=== PATIENT | male | born 1985 | race Caucasian/White ===

== ENCOUNTER 2017-06-21 18:06 | Emergency (ER) | payer MEDICAID, OTHER ==
[~2017-06-21] VITALS: Ht 180.3 cm; Wt 107.8 kg
[2017-06-21 18:08] VITALS: BP 115/66
[2017-06-21] MEDS ORDERED: LIDOCAINE 1%, 20ML SQ ONE (19:00)
[2017-06-21] MEDS ORDERED: KETOROLAC 30 MG/1 ML IM ONE (19:00)
[2017-06-21] MEDS ORDERED: METHOCARBAMOL 750 MG TABLET PO ONE (19:00)
[2017-06-21] MEDS ORDERED: KETOROLAC 30 MG/1 ML ONE (19:06)
[2017-06-21] MEDS ORDERED: LIDOCAINE 1%, 20ML ONE (19:06)
[2017-06-21] MEDS ORDERED: METHOCARBAMOL 750 MG TABLET ONE (19:06)
== END 2017-06-21 19:50 ==
LOC: ED 19:40
DX: S39.012A Strain of muscle, fascia and tendon of lower back, initial encounter (principal); L05.01 Pilonidal cyst with abscess; J44.9 Chronic obstructive pulmonary disease, unspecified; W19.XXXA Unspecified fall, initial encounter; Y93.89 Activity, other specified; Y92.89 Other specified places as the place of occurrence of the external cause; Y99.8 Other external cause status
CPT/HCPCS: 10060; 72110; 72220; 96372; 99284; J1885

== ENCOUNTER 2017-08-20 19:49 | Emergency (ER) | payer MEDICAID, OTHER ==
[~2017-08-20] VITALS: Ht 180.3 cm; Wt 109.0 kg
[2017-08-20 19:51] VITALS: BP 122/79
[2017-08-20] MEDS ORDERED: DIPHENHYDRAMINE 25 MG CAPSULE ONE (21:22)
[2017-08-20] MEDS ORDERED: KETOROLAC 30 MG/1 ML ONE (21:22)
[2017-08-20] MEDS ORDERED: KETOROLAC 30 MG/1 ML IM ONE (21:30)
[2017-08-20] MEDS ORDERED: METOCLOPRAMIDE 10MG TABLET PO ONE (21:30)
[2017-08-20] MEDS ORDERED: DIPHENHYDRAMINE 25 MG CAPSULE PO ONE (21:30)
== END 2017-08-20 22:48 | disposition home or self-care (01) ==
LOC: ED 20:26
DX: S39.012A Strain of muscle, fascia and tendon of lower back, initial encounter (principal); S16.1XXA Strain of muscle, fascia and tendon at neck level, initial encounter; S09.90XA Unspecified injury of head, initial encounter; J44.9 Chronic obstructive pulmonary disease, unspecified; W01.0XXA Fall on same level from slipping, tripping and stumbling without subsequent striking against object, initial encounter; Y93.89 Activity, other specified; Y92.009 Unspecified place in unspecified non-institutional (private) residence as the place of occurrence of the external cause; Y99.9 Unspecified external cause status
CPT/HCPCS: 70450; 72110; 72125; 96372; 99284; J1885; Q0163

== ENCOUNTER 2017-11-10 00:19 | Emergency (ER) | payer MEDICAID ==
[~2017-11-10] VITALS: Ht 180.3 cm; Wt 110.1 kg
[2017-11-10 00:33] VITALS: BP 123/76
[2017-11-10] MEDS ORDERED: HYDROcodone/APAP 5/325 TABLET ONE (01:29)
[2017-11-10] MEDS ORDERED: HYDROcodone/APAP 5/325 TABLET PO ONE (01:30)
== END 2017-11-10 01:41 | disposition home or self-care (01) ==
LOC: ED 01:35
DX: K04.7 Periapical abscess without sinus (principal); K02.9 Dental caries, unspecified; K01.1 Impacted teeth; J44.9 Chronic obstructive pulmonary disease, unspecified
CPT/HCPCS: 99283

== ENCOUNTER 2017-12-28 22:44 | Emergency (ER) | payer MEDICAID ==
[~2017-12-28] VITALS: Ht 180.3 cm; Wt 110.8 kg
[2017-12-28 22:45] VITALS: BP 138/83
[2017-12-29] MEDS ORDERED: HYDROcodone/APAP 5/325 TABLET PO ONE
[2017-12-29] MEDS ORDERED: HYDROcodone/APAP 5/325 TABLET ONE (00:19)
== END 2017-12-29 01:12 | disposition home or self-care (01) ==
LOC: ED 23:28
DX: L05.91 Pilonidal cyst without abscess (principal)
CPT/HCPCS: 10080; 99283

== ENCOUNTER 2018-04-02 22:53 | Emergency (ER) | payer MEDICAID ==
[~2018-04-02] VITALS: Ht 180.3 cm; Wt 109.8 kg
[2018-04-02 22:55] VITALS: BP 117/80
== END 2018-04-03 00:24 | disposition home or self-care (01) ==
LOC: ED 23:59
DX: J18.9 Pneumonia, unspecified organism (principal); J06.9 Acute upper respiratory infection, unspecified; J44.9 Chronic obstructive pulmonary disease, unspecified; G43.909 Migraine, unspecified, not intractable, without status migrainosus
CPT/HCPCS: 36415; 71046; 93005; 99284; 99285

== ENCOUNTER 2018-06-04 22:36 | Emergency (ER) | payer MEDICAID ==
[~2018-06-04] VITALS: Ht 180.3 cm; Wt 109.3 kg
[2018-06-04 23:14] VITALS: BP 129/74
== END 2018-06-04 23:16 | disposition home or self-care (01) ==
LOC: ED 22:45
DX: K02.9 Dental caries, unspecified (principal); J44.9 Chronic obstructive pulmonary disease, unspecified; F17.210 Nicotine dependence, cigarettes, uncomplicated
CPT/HCPCS: 99283; 99406

== ENCOUNTER 2018-11-01 13:59 | Emergency (ER) | payer SELFPAY ==
[~2018-11-01] VITALS: Ht 180.3 cm; Wt 104.7 kg
[2018-11-01 14:11] VITALS: BP 109/71
[2018-11-01] MEDS ORDERED: KETOROLAC 30 MG/1 ML IM ONE (14:30)
[2018-11-01] MEDS ORDERED: METHOCARBAMOL 750 MG TABLET PO ONE (14:30)
[2018-11-01] MEDS ORDERED: METHOCARBAMOL 750 MG TABLET ONE (14:37)
[2018-11-01] MEDS ORDERED: KETOROLAC 30 MG/1 ML ONE (14:37)
== END 2018-11-01 15:41 | disposition home or self-care (01) ==
LOC: ED 15:30
DX: S39.012A Strain of muscle, fascia and tendon of lower back, initial encounter (principal); S29.012A Strain of muscle and tendon of back wall of thorax, initial encounter; J44.9 Chronic obstructive pulmonary disease, unspecified; G43.909 Migraine, unspecified, not intractable, without status migrainosus; X58.XXXA Exposure to other specified factors, initial encounter; Y93.89 Activity, other specified; Y92.89 Other specified places as the place of occurrence of the external cause; Y99.8 Other external cause status
CPT/HCPCS: 72072; 96372; 99283; J1885

== ENCOUNTER 2018-12-06 10:32 | Emergency (ER) | payer SELFPAY ==
[~2018-12-06] VITALS: Ht 180.3 cm; Wt 107.9 kg
[2018-12-06 10:43] VITALS: BP 132/78
[2018-12-06] MEDS ORDERED: DEXAMETHASONE 4 MG TABLET ONE (10:48)
[2018-12-06] MEDS ORDERED: DEXAMETHASONE 4 MG/ML, 1ML PO ONE (11:00)
--- NOTE | 2018-12-06 11:26 | NUR ---
C/O HEAD CONGESTION & SORE THROAT - STARTED LAST NOC. NO MEDS TAKEN FOR SX. DENIES DYSPNEA.
[2018-12-06] MEDS ORDERED: HYDROcodone/APAP 7.5-325MG/15ML UDC PO ONE (11:30)
[2018-12-06] MEDS ORDERED: HYDROcodone/APAP 7.5-325MG/15ML UDC ONE (11:41)
== END 2018-12-06 12:11 | disposition home or self-care (01) ==
LOC: ED 12:00
DX: H65.02 Acute serous otitis media, left ear (principal); J00 Acute nasopharyngitis [common cold]; G89.29 Other chronic pain; F17.210 Nicotine dependence, cigarettes, uncomplicated
CPT/HCPCS: 71046; 87081; 87880; 99284; J1100

== ENCOUNTER 2018-12-20 17:59 | Emergency (ER) | payer SELFPAY ==
[~2018-12-20] VITALS: Ht 180.3 cm; Wt 108.2 kg
[2018-12-20 18:08] VITALS: BP 106/73
[2018-12-20] MEDS ORDERED: LIDOCAINE-MPF 1%, 5ML INFIL ONE (18:30)
--- NOTE | 2018-12-20 19:30 | NUR ---
I&D completed by JOSENJ. pt tolerated well.
--- NOTE | 2018-12-20 20:22 | NUR ---
pt given dc instructions and script. pt given dc instructions and script, pt educated regarding bactrim and keflex rx. pt amb to dc desk with steady gait. nadn at dc.
== END 2018-12-20 20:24 | disposition home or self-care (01) ==
LOC: ED 20:00
DX: L05.01 Pilonidal cyst with abscess (principal)
CPT/HCPCS: 10080; 99284

== ENCOUNTER 2019-02-21 20:55 | Emergency (ER) | payer SELFPAY ==
[~2019-02-21] VITALS: Ht 180.3 cm; Wt 110.1 kg
[2019-02-21] MEDS ORDERED: ALBUTEROL SULFATE 2.5 MG/3 ML ONE (22:48)
[2019-02-21] MEDS ORDERED: ALBUTEROL SULFATE 2.5 MG/3 ML NPPB ONE (23:00)
[2019-02-21 23:31] LABS: BASOPHILS # (AUTO) 0.03 x10^3/uL (0-0.1); BASOPHILS % (AUTO) 0 % (0-1); EOSINOPHILS # (AUTO) 0.08 x10^3/uL (0-0.4); EOSINOPHILS % (AUTO) 1 % (1-7); LYMPHOCYTES % (AUTO) 25 % (22-44); MD NO; MEAN CORPUSCULAR HEMOGLOBIN 31.5 pg (27.5-34.5); MEAN CORPUSCULAR HGB CONC 34.6 g/dL (33.2-36.2); MEAN PLATELET VOLUME 9.7 fL (7.4-10.4); MONOCYTES # (AUTO) 1.11 x10^3/uL (0.2-0.8); MONOCYTES % (AUTO) 10 % (2-9); NEUTROPHILS # (AUTO) 7.05 x10^3/uL (1.8-6.8); NEUTROPHILS % (AUTO) 64 % (42-75); PLATELET COUNT 219 x10^3/uL (130-400); RED BLOOD COUNT 4.79 x10^6/uL (4.38-5.82); RED CELL DISTRIBUTION WIDTH 12.9 % (9.4-14.8)
[2019-02-21 23:36] LABS: ALBUMIN 3.9 g/dL (3.4-5.0); ANION GAP 8 mmol/L (5-15); CALCIUM 8.5 mg/dL (8.5-10.1); CHLORIDE 113 mmol/L (98-107)
[2019-02-21 23:43] LABS: ALANINE AMINOTRANSFERASE 35 U/L (12-78); ALKALINE PHOSPHATASE 70 U/L (45-117); BILIRUBIN,TOTAL 0.1 mg/dL (0.2-1.0); CREATININE 0.96 mg/dL (0.7-1.3); TROPONIN I < 0.015 ng/mL (0.000-0.045)
[2019-02-21 23:47] VITALS: BP 106/66
== END 2019-02-22 00:33 | disposition home or self-care (01) ==
LOC: ED 22:57
DX: R07.2 Precordial pain (principal); R05 Cough; B34.9 Viral infection, unspecified
CPT/HCPCS: 36415; 71046; 80053; 84484; 85025; 93005; 94640; 99284; J7613